=== PATIENT | male | born 1990 | race Caucasian/White ===

== ENCOUNTER 2019-10-29 15:51 | Emergency (ER) | payer SELFPAY ==
[~2019-10-29] VITALS: Ht 167.7 cm; Wt 87.1 kg
[2019-10-29] MEDS ORDERED: LORazepam INJ 2 MG/ML (ATIVAN) VIAL IVP ONE (16:15)
[2019-10-29] MEDS ORDERED: ASPIRIN 81 MG CHEW (CHILDREN'S ASA) PO ONE (16:15)
[2019-10-29] MEDS ORDERED: RT-ALBUTEROL/IPRATROPIUM 3 ML (DUONEB) VIAL INH ONE (16:15)
--- NOTE | 2019-10-29 16:17 | ED General ---
General Stated Complaint: CHEST PAIN History of Present Illness Date Seen by Provider: Oct 29, 2019 Time Seen by Provider: 16:14 Initial Comments Patient presenting to emergency department for evaluation of chest tightness that has been going on for the past 1-2 months but has been more consistent lately and he was quite concerned about an episode that occurred today. He said that it is not associated with activity or exertion or movement he can think of he thinks that food may make it worse. He says that there has been some nausea and shortness of breath when he lays flat but no vomiting or diaphoresis. Patient says that he has had no cough. He denies having any the medical problems but he says his mother told him that he has asthma. He takes no medications and denies any history of diabetes hypertension high cholesterol smoking or family history of heart disease. He is in no obvious distress with normal vital signs. Allergies and Home Medications Allergies Coded Allergies: No Known Drug Allergies (Unverified , 10/29/19) Patient Home Medication List Home Medication List Reviewed: Yes Review of Systems Review of Systems Constitutional: no symptoms reported EENTM: no symptoms reported Respiratory: short of breath Cardiovascular: chest pain Gastrointestinal: nausea Genitourinary: no symptoms reported Musculoskeletal: no symptoms reported Skin: no symptoms reported Psychiatric/Neurological: No Symptoms Reported All Other Systems Reviewed Negative Unless Noted: Yes Past Fgakaxz-Gntpoq-Bpwnin Hx Patient Social History Recent Foreign Travel: No Contact w/Someone Who Travel: No Physical Exam Vital Signs Vital Signs - First Documented 10/29/19 15:55 Temp 37.2 Pulse 95 Resp 19 B/P (MAP) 127/79 (95) Pulse Ox 99 O2 Delivery Room Air Capillary Refill : Height, Weight, BMI Height: '" Weight: lbs. oz. kg; BMI Method: General Appearance: No Apparent Distress, WD/WN HEENT: Pharynx Normal Neck: Supple Respiratory: No Respiratory Distress, Wheezing Cardiovascular: Regular Rate, Rhythm Gastrointestinal: Non Tender, Soft Back: Normal Inspection Extremity: Normal Capillary Refill, No Pedal Edema Neurologic/Psychiatric: Alert, Oriented x3 Skin: Warm/Dry Progress/Results/Core Measures Suspected Sepsis SIRS Temperature: Pulse: Respiratory Rate: Laboratory Tests 10/29/19 16:25: White Blood Count 8.0 Blood Pressure / Mean: Laboratory Tests 10/29/19 16:25: Creatinine 0.85, Platelet Count 150, Total Bilirubin 0.3 Results/Orders Lab Results Laboratory Tests Test 10/29/19 16:25 Range/Units White Blood Count 8.0 4.3-11.0 10^3/uL Red Blood Count 5.05 4.35-5.85 10^6/uL Hemoglobin 15.4 13.3-17.7 G/DL Hematocrit 45 40-54 % Mean Corpuscular Volume 90 80-99 FL Mean Corpuscular Hemoglobin 30 25-34 PG Mean Corpuscular Hemoglobin Concent 34 32-36 G/DL Red Cell Distribution Width 12.6 10.0-14.5 % Platelet Count 150 130-400 10^3/uL Mean Platelet Volume 12.4 H 7.4-10.4 FL Neutrophils (%) (Auto) 50 42-75 % Lymphocytes (%) (Auto) 39 12-44 % Monocytes (%) (Auto) 9 0-12 % Eosinophils (%) (Auto) 2 0-10 % Basophils (%) (Auto) 0 0-10 % Neutrophils # (Auto) 4.0 1.8-7.8 X 10^3 Lymphocytes # (Auto) 3.1 1.0-4.0 X 10^3 Monocytes # (Auto) 0.7 0.0-1.0 X 10^3 Eosinophils # (Auto) 0.1 0.0-0.3 10^3/uL Basophils # (Auto) 0.0 0.0-0.1 10^3/uL D-Dimer 0.33 0.00-0.49 UG/ML Sodium Level 142 135-145 MMOL/L Chloride Level 105 98-107 MMOL/L Carbon Dioxide Level 24 21-32 MMOL/L Anion Gap 13 5-14 MMOL/L Blood Urea Nitrogen 7 7-18 MG/DL Creatinine 0.85 0.60-1.30 MG/DL Estimat Glomerular Filtration Rate > 60 BUN/Creatinine Ratio 8 Calcium Level 9.2 8.5-10.1 MG/DL Corrected Calcium 8.8 8.5-10.1 MG/DL Magnesium Level 2.1 1.6-2.4 MG/DL Total Bilirubin 0.3 0.1-1.0 MG/DL Aspartate Amino Transf (AST/SGOT) 21 5-34 U/L Alanine Aminotransferase (ALT/SGPT) 23 0-55 U/L Alkaline Phosphatase 59 40-136 U/L Troponin I < 0.30 <0.30 NG/ML Pro-B-Type Natriuretic Peptide 30.3 <75.0 PG/ML Total Protein 7.7 6.4-8.2 GM/DL Albumin 4.5 3.2-4.5 GM/DL Lipase 27 8-78 U/L My Orders Orders - BENNY SOTO DO Cbc With Automated Diff (10/29/19 16:08) Comprehensive Metabolic Panel (10/29/19 16:08) Fibrin Degradation Products (10/29/19 16:08) Lipase (10/29/19 16:08) Magnesium (10/29/19 16:08) Probnp Fs (10/29/19 16:08) Troponin I Fs (10/29/19 16:08) Chest 1 View Ap/Pa Only (10/29/19 16:08) Lorazepam Injection (Ativan Injection) (10/29/19 16:15) Aspirin Chewable Tablet (Baby Aspirin Ch (10/29/19 16:15) Albuterol/Ipra Inhalation Soln (Duoneb I (10/29/19 16:15) Svn Small Volume Nebulizer (10/29/19 16:08) Ekg Tracing (10/29/19 16:34) Ed Iv/Invasive Line Start (10/29/19 16:36) Prednisone Tablet (Deltasone Tablet) (10/29/19 17:45) Medications Given in ED Current Medications Medications Dose Ordered Sig/Saritha Route Start Time Stop Time Status Last Admin Dose Admin Albuterol/ Ipratropium 3 ml ONCE ONCE INH 10/29/19 16:15 10/29/19 16:16 DC 10/29/19 16:30 3 ML Aspirin 324 mg ONCE ONCE PO 10/29/19 16:15 10/29/19 16:16 DC 10/29/19 16:30 324 MG Lorazepam 1 mg ONCE ONCE IVP 10/29/19 16:15 10/29/19 16:16 DC 10/29/19 16:30 1 MG Vital Signs/I&O 10/29/19 10/29/19 15:55 15:55 Temp 37.2 Pulse 95 Resp 19 B/P (MAP) 127/79 (95) Pulse Ox 99 O2 Delivery Room Air Room Air Capillary Refill : Progress Note : Progress Note Patient with benign exam and his history is inconsistent with ACS pulmonary embolism or dissection I suspect this is either anxiety costochondritis or bronchospasm. I will check basic labs chest x-ray treat symptoms and reassess. Workup is completely normal and patient said that after getting a breathing treatment this completely resolved the tightness. I suspect this is more of a bronchospasm than anything else I will give him a dose of a steroid prescribe him a steroid and albuterol have him follow with his primary care provider within the next 2-3 days and come back to the ED sooner with worsening pain shortness of breath or other general concerns. Patient aware and agreeable with plan for discharge and verbalized understanding of the above instructions. Departure Impression Primary Impression: Chest pain Qualified Codes: R07.9 - Chest pain, unspecified Additional Impression: Wheezing Disposition: 01 HOME, SELF-CARE Condition: Stable Departure-Patient Inst. Referrals: NO,LOCAL PHYSICIAN (PCP) Primary Care Physician Patient Instructions: Chest Pain (DC), Wheezing Scripts Prednisone (Prednisone) 20 Mg Tab 40 MG PO DAILY for 4 Days, #8 TAB 0 Refills Prov: BENNY SOTO DO 10/29/19 Albuterol Sulfate (PROAIR HFA) 1 Puff Puff 2 PUFF IH Q4H, #1 PUFF 1 PUFF = 90 MCG Prov: BENNY SOTO DO 10/29/19 BENNY SOTO DO Oct 29, 2019 16:17 POS
--- NOTE | 2019-10-29 16:22 | Diagnostic Imaging Report ---
INDICATION: Chest pain. COMPARISON: None available. TECHNIQUE: A single radiograph of the chest is dated 10/29/2019. FINDINGS: The cardiac silhouette and pulmonary vasculature are within normal limits. The lungs are clear. No pleural effusion. No pneumothorax. No acute osseous abnormality. IMPRESSION: No acute cardiopulmonary abnormality. Dictated by: Dictated on workstation # [id number]
[2019-10-29 16:36] LABS: HEMATOCRIT 45 % (40-54); HEMOGLOBIN 15.4 G/DL (13.3-17.7); LYMPHOCYTES % (AUTO) 39 % (12-44); MEAN CORPUSCULAR HEMOGLOBIN 30 PG (25-34); MEAN CORPUSCULAR HGB CONC 34 G/DL (32-36); MEAN CORPUSCULAR VOLUME 90 FL (80-99); MEAN PLATELET VOLUME 12.4 FL (7.4-10.4); NEUTROPHILS % (AUTO) 50 % (42-75); RED CELL DISTRIBUTION WIDTH 12.6 % (10.0-14.5)
[2019-10-29 16:37] LABS: BASOPHILS % (AUTO) 0 % (0-10); EOSINOPHILS # (AUTO) 0.1 10^3/uL (0.0-0.3); EOSINOPHILS % (AUTO) 2 % (0-10); LYMPHOCYTES # (AUTO) 3.1 X 10^3 (1.0-4.0); MONOCYTES # (AUTO) 0.7 X 10^3 (0.0-1.0); MONOCYTES % (AUTO) 9 % (0-12); PLATELET COUNT 150 10^3/uL (130-400)
[2019-10-29 17:21] LABS: ALANINE AMINOTRANSFERASE 23 U/L (0-55); ALBUMIN 4.5 GM/DL (3.2-4.5); ALKALINE PHOSPHATASE 59 U/L (40-136); BILIRUBIN,TOTAL 0.3 MG/DL (0.1-1.0); BUN/CREATININE RATIO 8; CALCIUM 9.2 MG/DL (8.5-10.1); CARBON DIOXIDE 24 MMOL/L (21-32); CHLORIDE 105 MMOL/L (98-107); CREATININE SERUM 0.85 MG/DL (0.60-1.30); GFR ESTIMATED > 60; LIPASE 27 U/L (8-78); MAGNESIUM 2.1 MG/DL (1.6-2.4); SODIUM 142 MMOL/L (135-145); TOTAL PROTEIN 7.7 GM/DL (6.4-8.2)
[2019-10-29] MEDS ORDERED: PRD20T PO (17:36)
[2019-10-29] MEDS ORDERED: RT-ALBUINH IH (17:36)
[2019-10-29 17:37] LABS: GLUCOSE 94 MG/DL (70-105); POTASSIUM 3.9 MMOL/L (3.6-5.0)
[2019-10-29] MEDS ORDERED: predniSONE 20 MG TAB PO ONE (17:45)
[2019-10-29 17:52] VITALS: BP 112/69
== END 2019-10-29 17:54 | disposition home or self-care (01) ==
LOC: ER FS 15:55
DX: R07.89 Other chest pain (principal); R06.2 Wheezing
CPT/HCPCS: 36415; 71045; 80053; 83690; 83735; 83880; 84484; 85025; 85379; 93005; 96374

== ENCOUNTER 2020-06-23 15:36 | Emergency (ER) | payer SELFPAY ==
[~2020-06-23] VITALS: Ht 167.7 cm; Wt 93.0 kg
[~2020-06-23 15:36] MED LIST: PRD20T PO; RT-ALBUINH IH
[2020-06-23 15:41] VITALS: BP 130/84
--- NOTE | 2020-06-23 16:02 | ED Chest Pain ---
General Chief Complaint: Chest Wall Stated Complaint: RIGHT SIDE ABD/RIB PAIN Nursing Triage Note: Patient reports he has had right rib cage/right abdominal for 3 days. States pain is worse when lying on his right side, worse with deep breathing, worse after eating. Nursing Sepsis Screen: No Definite Risk History of Present Illness Date Seen by Provider: Jun 23, 2020 Time Seen by Provider: 15:50 Initial Comments 29-year-old male presents with right-sided anterior chest pain, intermittent over the past 1 week. Pain is worse with certain movements and with coughing or sneezing. Denies any inciting event or trauma or previous occurrence. Denies recent cough, shortness of air, fever or chills or known exposure COVID 19. Allergies and Home Medications Allergies Coded Allergies: No Known Drug Allergies (Unverified , 10/29/19) Home Medications Albuterol Sulfate 1 Puff Puff, 2 PUFF IH Q4H 1 PUFF = 90 MCG Prescribed by: BENNY SOTO on 10/29/191735 Prednisone 20 Mg Tab, 40 MG PO DAILY Prescribed by: BENNY SOTO on 10/29/191735 Patient Home Medication List Home Medication List Reviewed: Yes Review of Systems Review of Systems Constitutional: see HPI; No dizziness, No fever, No malaise, No weakness EENTM: No Symptoms Reported Respiratory: See HPI; Denies Cough, Denies Shortness of Air, Denies Stridor, Denies Wheezing Cardiovascular: Chest Pain (R lower and ant); Denies Edema, Denies Irregular Heart Rate, Denies Lightheadedness, Denies Palpitations, Denies Syncope Gastrointestinal: Denies Abdomen Distended, Denies Abdominal Pain, Denies N ausea, Denies Vomiting Musculoskeletal: No back pain, No joint pain, No muscle pain, No muscle stiffness, No muscle twitching, No neck pain Skin: No change in color, No lesions, No lumps, No rash Past Llntjkl-Ctjtmz-Ogyvwa Hx Past Med/Social Hx: Reviewed Nursing Past Med/Soc Hx Patient Social History Alcohol Use: Denies Use Recreational Drug Use: No Smoking Status: Never a Smoker 2nd Hand Smoke Exposure: No Recent Foreign Travel: No Contact w/Someone Who Travel: No Recent Infectious Disease Expo: No Recent Hopitalizations: No Physical Abuse: No Sexual Abuse: No Mistreated: No Fear: No Seasonal Allergies Seasonal Allergies: No Past Medical History Surgeries: No Respiratory: No Cardiac: No Neurological: No Genitourinary: No Gastrointestinal: No Musculoskeletal: No Endocrine: No HEENT: Yes Glaucoma Cancer: No Psychosocial: No Integumentary: No Physical Exam Vital Signs Vital Signs - First Documented 06/23/20 15:41 Temp 36.8 Pulse 87 Resp 16 B/P (MAP) 130/84 (99) Pulse Ox 95 O2 Delivery Room Air Capillary Refill : Less Than 3 Seconds Height, Weight, BMI Height: '" Weight: lbs. oz. kg; 33.00 BMI Method: General Appearance: No Apparent Distress, WD/WN Neck: Full Range of Motion, Non Tender, Supple Respiratory: Lungs Clear, Normal Breath Sounds, No Accessory Muscle Use, No Respiratory Distress, Other (tenderness right anterior lower rib cage with no specific one area. No pain with lateral compression of the rib cage. No sternal or clavicular pain no posterior chest or rib pain. No CVA tenderness and no vertebral tenderness) Cardiovascular: Regular Rate, Rhythm, No Edema, No Murmur, Normal Peripheral Pulses Gastrointestinal: Non Tender, Soft; No Distended, No Guarding, No Hernia, No Rebound, No Splenomegaly Neurologic/Psychiatric: Alert, Oriented x3, No Motor/Sensory Deficits, Normal Mood/Affect Skin: Normal Color, Warm/Dry Progress/Results/Core Measures Results/Orders My Orders Orders - MARNIE HANKINS DO Chest Pa/Lat (2 View) (06/23/20 15:55) Vital Signs/I&O 06/23/20 15:41 Temp 36.8 Pulse 87 Resp 16 B/P (MAP) 130/84 (99) Pulse Ox 95 O2 Delivery Room Air Blood Pressure Mean: 99 Diagnostic Imaging Diagonstic Imaging: Xray Plain Films/CT/US/NM/MRI: chest Departure Impression Primary Impression: Pleuritic chest pain Disposition: HOME, SELF-CARE Condition: Stable Departure-Patient Inst. Decision time for Depature: 16:05 Referrals: NO,LOCAL PHYSICIAN (PCP) Primary Care Physician Patient Instructions: Pleuritic Chest Pain (DC) Add. Discharge Instructions: See your Primary Care doctor in 1 week for re-evaluation All discharge instructions reviewed with patient and/or family. Voiced under standing. Scripts Ibuprofen (Ibuprofen) 800 Mg Tablet 800 MG PO Q8H PRN for PAIN, #30 TAB 0 Refills Prov: ROVENSTINE,MARNIE L DO 06/23/20 MARNIE HANKINS DO Jun 23, 2020 16:02
[2020-06-23] MEDS ORDERED: IBUP-1780 PO (16:06)
--- NOTE | 2020-06-23 16:18 | Diagnostic Imaging Report ---
INDICATION: Right-sided chest pain. FINDINGS: No focal infiltrate, effusion, or pneumothorax. No free air beneath the diaphragms. IMPRESSION: No acute-appearing abnormality. Dictated by: Dictated on workstation # [id number]
--- OUTSIDE RECORDS SUMMARY | 2020-06-23 18:41 | XMS REPORT | Continuity of Care Document ---
Author Organization Unknown Address Unknown Phone Unavailable Allergies Active Description Code Type Severity Reaction Onset Reported/Identified Relationship to Patient Clinical Status Yes No Known Drug Allergies [id number] Drug Allergy Unknown N/A 10/29/2019 Medications There is no data. Problems Date Dx Coded Attending Type Code Diagnosis Diagnosed By 11/01/2019 BENNY SOTO DO Ot R06 .2 WHEEZING 11/01/2019 BENNY SOTO DO Ot R07.89 OTHER CHEST PAIN 11/01/2019 BENNY SOTO DO Ot R07 .9 CHEST PAIN, UNSPECIFIED Procedures There is no data. Results Test Result Range CRP, CARDIAC - 08/26/19 09:30 HS CRP 2.1 mg/L NRG TSH - 08/26/19 09:30 TSH 2.52 mIU/L 0.40-4.50 Complete blood count (CBC) with automate d white blood cell (WBC) differential - 10/29/19 16:25 Blood leukocytes automated count (number/volume) 8.0 10*3/uL 4.3-11.0 Blood erythrocytes automated count (number/volume) 5.05 10*6/uL 4.35-5.85 Venous blood hemoglobin measurement (mass/volume) 15.4 g/dL 13.3-17.7 Blood hematocrit (volume fraction) 45 % 40-54 Automated erythrocyte mean corpuscular volume 90 [ foz_us] 80-99 Automated erythrocyte mean corpuscular h emoglobin (mass per erythrocyte) 30 pg 25-34 Automated erythrocyte mean corpuscular h emoglobin concentration measurement (mass/volume) 34 g/dL 32-36 Automated erythrocyte distribution width ratio 12. 6 % 10.0- 14.5 Automated blood platelet count (count/volume) 150 10*3/uL 130-400 Automated blood platelet mean volume measurement 12.4 [foz_us] 7.4-10.4 Automated blood neutrophils/100 leukocytes 50 % 42-75 Automated blood lymphocytes/100 leukocytes 39 % 12-44 Blood monocytes/100 leukocytes 9 % 0-12 Automated blood eosinophils/100 leukocytes 2 % 0-10 Automated blood basophils/100 leukocytes 0 % 0-10 Blood neutrophils automated count (number/volume) 4.0 10*3 1.8-7.8 Blood lymphocytes automated count (number/volume) 3.1 10*3 1.0-4.0 Blood monocytes automated count (number/volume) 0. 7 10*3 0.0-1.0 Automated eosinophil count 0.1 10*3/uL 0 .0-0.3 Automated blood basophil count (count/volume) 0.0 10*3/uL 0.0-0.1 Fibrin D-dimer FEU measurement in platel et poor plasma (mass/volume) - 10/29/19 16:25 Fibrin D-dimer FEU measurement in platelet poor plasma (mass/volume) 0.33 ug/mL 0.00-0.49 Comprehensive metabolic panel - 10/29/19 16:25 Serum or plasma sodium measurement (moles/volume) 142 mmol/L 135-145 Serum or plasma potassium measurement (moles/volume) 3.9 mmol/L 3.6-5.0 Serum or plasma chloride measurement (moles/volume) 105 mmol/L 98-107 Carbon dioxide 24 mmol/L 21-32 Serum or plasma anion gap determination (moles/volume) 13 mmol/L 5-14 Serum or plasma urea nitrogen measurement (mass/volume ) 7 mg/dL 7-18 Serum or plasma creatinine measurement (mass/volume) 0.85 mg/dL 0.60-1.30 Serum or plasma urea nitrogen/creatinine mass ratio 8 NRG Serum or plasma creatinine measurement w ith calculation of estimated glomerular filtration rate > NRG Serum or plasma glucose measurement (mass/volume) 94 mg/dL 70-105 Serum or plasma calcium measurement (mass/volume) 9.2 mg/dL 8.5-10.1 Serum or plasma total bilirubin measurement (mass/volu me) 0.3 mg/dL 0.1-1.0 Serum or plasma alkaline phosphatase сергей surement (enzymatic activity/volume) 59 U/L 40-136 Serum or plasma aspartate aminotransfera se measurement (enzymatic activity/volume) 21 U/L 5-34 Serum or plasma alanine aminotransferase measurement (enzymatic activity/volume) 23 U/L 0-55 Serum or plasma protein measurement (mass/volume) 7.7 g/dL 6.4-8.2 Serum or plasma albumin measurement (mass/volume) 4.5 g/dL 3.2-4.5 CALCIUM CORRECTED 8.8 mg/dL 8.5-10.1 Magnesium - 10/29/19 16:25 Magnesium 2.1 mg/dL 1.6-2.4 TROPONIN I FS - 10/29/19 16:25 TROPONIN I FS < 0.30 <0.30 PROBNP FS - 10/29/19 16:25 PROBNP FS 30.3 pg/mL <75.0 Lipase - 10/29/19 16:25 Lipase 27 U/L 8-78 Encounters ACCT No. Visit Date/Time Discharge Status Pt. Type Provider Facility Loc./Unit Complaint [id number] 08/26/2019 09:50:00 08/26/2019 23:59: 59 [facility] Outpatient JOSE VILLALPANDO [facility] [id number] 08/26/2019 09:15:00 Document Registration [id number] 06/23/2020 15:37:00 020 16:24:00 DIS Emergency MARNIE HANKINS DO [facility] ER FS RIGHT SIDE ABD/ RIB PAIN [id number] 10/29/2019 15:55:00 019 17:54:00 DIS Outpatient BENNY SOTO DO [facility] ER FS CHEST PAIN
== END 2020-06-23 16:24 | disposition home or self-care (01) ==
LOC: EDUNIT# 15:36 → ER FS 15:37
DX: R07.81 Pleurodynia (principal); Z79.52 Long term (current) use of systemic steroids
CPT/HCPCS: 71046

== ENCOUNTER 2022-02-18 22:20 | Emergency (ER) | payer SELFPAY ==
[~2022-02-18] VITALS: Ht 167.7 cm; Wt 82.5 kg
[~2022-02-18 22:20] MED LIST changes: +IBUP-1780 PO
[2022-02-18] MEDS ORDERED: TETRACAINE 0.5% OPHTH SOLN 4 ML BTL (SINGLE DOSE ONLY) OU ONE (22:30)
[2022-02-18] MEDS ORDERED: FLUORESCEIN (FLUOR-I-STRIPS) 1 MG STRP OU ONE (22:30)
[2022-02-18] MEDS ORDERED: BSS 15 ML IR ONE (22:30)
--- NOTE | 2022-02-18 23:32 | ED EENT ---
History of Present Illness General Chief Complaint: Eye Problems Stated Complaint: RT EYE IRRITATION Nursing Triage Note: Pt c/o right eye irriation since 2099. Pt stated "I may have metal in it.". Pt denies visual changes. Source: patient History of Present Illness Date Seen by Provider: Feb 18, 2022 Time Seen by Provider: 23:32 Initial Comments 31-year-old male presenting with complaints of irritation to his right eye. He had been using a saw with cutting abdominal earlier in the evening. He was wearing safety glasses. He states after he got home he felt like there was something in his eye and he proceeded to have thick purulent drainage. He has no change in vision but has thick drainage from right eye and irritation to the eye. Timing/Duration: abrupt Severity: moderate Location: eye (R) Prearrival Treatment: no prearrival treatment Associated Symptoms: No change in hearing, No cough, No drooling, No ear drainage, No facial pain/swelling, No fever, No malaise, No nasal congestion/drainage, No poor fluid intake, No poor solids intake, No sinus infection, No sore throat, No tooth pain, No voice change Allergies and Home Medications Allergies Coded Allergies: No Known Drug Allergies (Unverified , 10/29/19) Patient Home Medication List Home Medication List Reviewed: Yes Albuterol Sulfate (Proair Hfa) 1 Puff Puff, 2 PUFF IH Q4H Prescribed by: BENNY SOTO on 10/29/19 173 Ibuprofen (Ibuprofen) 800 Mg Tablet, 800 MG PO Q8H PRN for PAIN Prescribed by: MARNIE HANKISN on 06/23/20 1606 Prednisone (Prednisone) 20 Mg Tab, 40 MG PO DAILY Prescribed by: BENNY SOTO on 10/29/191735 Review of Systems Review of Systems Constitutional: No chills, No fever Eyes: See HPI; Denies Blurred Vision; Drainage (right eye), Photophobia; Denies Vision Changes Ears: No Symptoms Reported Nose: no symptoms reported Mouth: no symptoms reported Throat: no symptoms reported Respiratory: no symptoms reported Cardiovascular: no symptoms reported Gastrointestinal: no symptoms reported Musculoskeletal: no symptoms reported Skin: no symptoms reported Neurological: No Symptoms Reported Past Maznwte-Mwrrya-Idxifk Hx Patient Social History Tobacco Use?: No Substance use?: No Alcohol Use?: Yes Alcohol type: Beer Alcohol Frequency: Several times a month Pt feels they are or have been: No Immunizations Up To Date Influenza Vaccine Up-to-Date: No; Not Current First/Initial COVID19 Vaccinat: denies Seasonal Allergies Seasonal Allergies: No Past Medical History Surgeries: No Respiratory: No Cardiac: No Neurological: No Genitourinary: No Gastrointestinal: No Musculoskeletal: No Endocrine: No HEENT: Yes Glaucoma Cancer: No Psychosocial: No Integumentary: No Physical Exam Vital Signs Vital Signs - First Documented 02/18/22 22:22 Temp 36.8 Pulse 82 Resp 17 B/P (MAP) 141/87 (105) Pulse Ox 98 O2 Delivery Room Air Height, Weight, BMI Height: '" Weight: lbs. oz. kg; 29.00 BMI Method: General Appearance: WD/WN, no apparent distress Eyes: right eye conjunctival inflammation, right eye other (no foreign body seen, no corneal abrasion seen when examined with fluorescein dye and black light); bilateral eye PERRL, bilateral eye EOMI Cardiovascular: normal peripheral pulses Neurologic/Psychiatric: alert, oriented x 3 Skin: normal color, warm/dry Procedures/Interventions Eye : Location: right eye Eye FB Removal: removal w/ cotton swab (purulent drainage along eyelids), other (no foreign body but purulent drainage removed with moistened cotton swab) Anesthesia (gtts): Tetracaine Progress/Results/Core Measures Results/Orders My Orders Orders - KALYN ZAVALA MD Tetracaine 0.5% Ophth Sugar Sdv (Tetracai (02/18/22 22:30) Fluorescein Strips ([id number]) (02/18/22 22:30) Balanced Salt Irrigation Soln (Bss Irrig (02/18/22 22:30) Rx-Poly/Trimeth Ophth (Rx-Polytrim Ophth (02/18/22 23:53) Medications Given in ED Current Medications Medications Dose Ordered Sig/Saritha Route Start Time Stop Time Status Last Admin Dose Admin Balanced Salt Solution 15 ml ONCE ONCE IR 02/18/22 22:30 02/18/22 22:31 DC 02/18/22 22:34 15 ML Fluorescein Sodium 1 mg ONCE ONCE OU 02/18/22 22:30 02/18/22 22:31 DC 02/18/22 22:34 1 MG Tetracaine HCl 4 ml ONCE ONCE OU 02/18/22 22:30 4/1/22 22:31 DC 02/18/22 22:35 4 ML Vital Signs/I&O 02/18/22 02/19/22 22:22 00:05 Temp 36.8 36.8 Pulse 82 82 Resp 17 17 B/P (MAP) 141/87 (105) 141/87 Pulse Ox 98 98 O2 Delivery Room Air Room Air Blood Pressure Mean: 105 Progress Progress Note : Progress Note No corneal abrasion or foreign body seen when examined with fluorescein dye and black light. Flushed with balanced saline solution. will start on Polytrim antibiotic and counseled on follow up and return precautions Departure Impression Primary Impression: Conjunctivitis, atopic, acute Qualified Codes: H10.11 - Acute atopic conjunctivitis, right eye Additional Impression: Corneal irritation of right eye Disposition: HOME, SELF-CARE Condition: Stable Departure-Patient Inst. Decision time for Depature: 23:58 Referrals: JOSE VILLALPANDO MD (PCP/Family) Primary Care Physician Patient Instructions: How to Use Eye Drops and Eye Ointment ED, Conjunctivitis (Noninfectious Pinkeye) (DC) Add. Discharge Instructions: Use 1 drop of the antibiotic eye drop to right eye every 3 hours while awake. Use this for the next 3-5 days to help clear irritation to your eye. If you have worsening symptoms over the weekend you could call Dr. Zambrano and follow up with the eye clinic this weekend. You could try applying an ice pack for 10-15 minutes every 2-3 hours as needed for pain and irritation. Ibuprofen 800 mg every 8 hours as needed for pain All discharge instructions reviewed with patient and/or family. Voiced understanding. KALYN ZAVALA MD Feb 18, 2022 23:32
[2022-02-18] MEDS ORDERED: RX-POLY/TRIMETH (POLYTRIM) OP 10 ML BTL OP STA (23:53)
[2022-02-19 00:05] VITALS: BP 141/87
== END 2022-02-19 00:05 | disposition home or self-care (01) ==
LOC: EDUNIT# 22:20 → ER FS 22:21
DX: H10.11 Acute atopic conjunctivitis, right eye (principal); H57.89 Other specified disorders of eye and adnexa
CPT/HCPCS: 99281

== ENCOUNTER 2022-08-14 11:19 | Emergency (ER) | payer SELFPAY ==
[~2022-08-14] VITALS: Ht 167 cm; Wt 86.0 kg
[2022-08-14 11:29] VITALS: BP 121/89
[2022-08-14] MEDS ORDERED: ORPHENADRINE 60 MG/2 ML (NORFLEX) AMP (ED ONLY) IM STA (11:43)
[2022-08-14] MEDS ORDERED: KETOROLAC 60 MG/2 ML VIAL IM STA (11:43)
--- NOTE | 2022-08-14 11:46 | ED Back Pain ---
General Chief Complaint: Back Problems Stated Complaint: BACK/LEG PAIN Nursing Triage Note: Patient has presented to ER by wheel chair with lower back pain. He reports that he has gone to the races last night and had been sitting on a bench. After sitting on the bench his lower back started hurting. He has continued to have pain all night. He has not taken anything for his pain - he reports that he does not like to take medications. He has presented to ER for evaluation. Source of Information: Patient, Spouse History of Present Illness Date Seen by Provider: Aug 14, 2022 Time Seen by Provider: 11:25 Initial Comments 32-year-old male presenting with complaints of pain to his low back and radiation down his right leg. He had similar symptoms a few months ago after he lifted a 2 pound table and had a pop in his back. At that time the pain had dropped him to his knees in the floor. He had a prolonged time to recover from labs but never went to the clinic or saw any provider about it. This weekend he was at a race and was sitting on a hard bench that had no support for his back. After a couple of hours of doing this he was starting to have severe pain in his back and down the right leg. He has difficulty walking and moving because of the pain. When his symptoms are the same or worse today they finally came to the emergency department to be evaluated. He denies any loss of bowel or bladder control. He has had no direct trauma to his back to contribute to his symptoms. He did used to work for [employer] and was doing heavy lifting as part of his job. Location: Lumbar Spine Timing/Duration: 1 Day Severity: Severe Pain/Injury Location: Back, Lower Extremity (Low back pain and then radiates down the right leg) Method of Injury: Unknown Modifying Factors: Worse With Movement Associated Symptoms: muscle spasms; No fever, No weakness, No numbness in legs/feet, No tingling in legs/feet, No sensory/motor loss; lower back pain; No loss of bladder control, No loss of bowel control Allergies and Home Medications Allergies Coded Allergies: No Known Drug Allergies (Unverified , 10/29/19) Patient Home Medication List Home Medication List Reviewed: Yes Albuterol Sulfate (Proair Hfa) 1 Puff Puff, 2 PUFF IH Q4H Prescribed by: BENNY SOTO on 10/29/19 7041 Ibuprofen (Ibuprofen) 800 Mg Tablet, 800 MG PO Q8H PRN for PAIN Prescribed by: MARNIE HANKINS on 06/23/20 1606 Ibuprofen (Ibuprofen) 800 Mg Tablet, 800 MG PO Q8H PRN for PAIN Prescribed by: KALYN ZAVALA on 08/14/22 1305 Methocarbamol (Methocarbamol) 750 Mg Tablet, 1,500 MG PO Q8H PRN for MUSCLE SPASMS Prescribed by: KALYN ZAVALA on 08/14/22 1305 Oxycodone HCl/Acetaminophen (Oxycodone-Acetaminophen 5-325) 5 Mg-325 Mg Tablet, 1 EACH PO Q4H PRN for PAIN-SEVERE (8-10) Prescribed by: KALYN ZAVALA on 08/14/22 1305 Prednisone (Prednisone) 20 Mg Tab, 40 MG PO DAILY Prescribed by: BENNY SOTO on 10/29/19 173 Review of Systems Constitutional: No chills, No fever EENTM: no symptoms reported Respiratory: no symptoms reported Cardiovascular: no symptoms reported Gastrointestinal: no symptoms reported Genitourinary: no symptoms reported Musculoskeletal: see HPI Skin: No change in color Psychiatric/Neurological: Denies Numbness, Denies Paresthesia Past Mwirvti-Njcdcz-Yxkpny Hx Patient Social History Tobacco Use?: No Use of E-Cig and/or Vaping dev: No Substance use?: No Alcohol Use?: Yes Alcohol Frequency: Once in a while Immunizations Up To Date First/Initial COVID19 Vaccinat: denies Seasonal Allergies Seasonal Allergies: No Past Medical History Surgery/Hospitalization HX: Bulging disc between L4 and L5 Surgeries: No Respiratory: No Cardiac: No Neurological: No Genitourinary: No Gastrointestinal: No Musculoskeletal: No Endocrine: No HEENT: Yes Glaucoma Cancer: No Psychosocial: No Integumentary: No Physical Exam Vital Signs Vital Signs - First Documented 08/14/22 11:29 Temp 36.3 Pulse 106 Resp 18 B/P (MAP) 121/89 (100) Pulse Ox 98 Capillary Refill : Height, Weight, BMI Height: '" Weight: lbs. oz. kg; 30.00 BMI Method: General Appearance: WD/WN, Anxious, Moderate Distress HEENT: PERRL/EOMI Neck: Full Range of Motion, Normal Inspection, Non Tender, Supple Cardiovascular: Regular Rate, Rhythm, Normal Peripheral Pulses Respiratory: Chest Non Tender, Lungs Clear, Normal Breath Sounds Back: No Vertebral Tenderness, Muscle Spasm Extremity: Normal Capillary Refill, Normal Inspection, No Pedal Edema Neurologic/Psychiatric: Alert, Oriented x3, lime burner II-XII Norm as Tested, Other (Patellar reflexes 2/4 bilaterally.) Skin: Normal Color, Warm/Dry Progress/Results/Core Measures Results/Orders My Orders Orders - KALYN ZAVALA MD Ketorolac Injection (Toradol Injection) (08/14/22 11:43) Orphenadrine Inj (Ed Only) (Norflex Inje (08/14/22 11:43) Ct Lumbar Spine Wo (08/14/22 12:09) Ct Pelvis Wo (08/14/22 12:09) Vital Signs/I&O 08/14/22 11:29 Temp 36.3 Pulse 106 Resp 18 B/P (MAP) 121/89 (100) Pulse Ox 98 Blood Pressure Mean: 100 Progress Progress Note #1: Progress Note As he has not had any imaging from his previous injury will obtain a CT scan and of his lumbar spine and pelvis to look for signs of sciatica her bulging disc or compression fracture. From a pain standpoint we will give Norflex 60 mg IM for muscle spasms and 60 mg of Toradol IM for general pain and inflammation. Progress Note #2: Progress Note CT shows bulging disc in the lumbar spine worse on the right side. Patient does report that his symptoms were doing a little better after the shots and medication here in the ED. We will continue with anti-inflammatories as well as muscle relaxers and prescribe a few pain pills so he has a narcotic to help with severe pain. Diagnostic Imaging Diagonstic Imaging: CT Plain Films/CT/US/NM/MRI: pelvis Comments NAME: MIKAYLA MESSINA HYGIEIA REC#: [id number] PT STATUS: REG ER : 1990 PHYSICIAN: KALYN ZAVALA MD ADMIT DATE: 08/14/22/ER FS Draft Date of Exam:08/14/22 CT PELVIS WO PROCEDURE: CT pelvis without contrast. TECHNIQUE: Multiple contiguous axial images were obtained through the pelvis without the use of intravenous contrast. Sagittal and coronal reformations were performed. Auto Exposure Controls were utilized during the CT exam to meet ALARA standards for radiation dose reduction. INDICATION: Pain. COMPARISON: Imaging from the same date. FINDINGS: The minimally visualized appendix is grossly unremarkable. The urinary bladder is unremarkable. Moderate amount of stool within the visualized colon. No evidence of bowel obstruction. No significant adenopathy, free air, or free fluid within the abdomen. Soft tissue gas with associated mild inflammatory stranding is noted within the left gluteal subcutaneous tissues. No acute fracture or dislocation. No destructive osseous process. Small sclerotic foci are identified within the proximal bilateral femora. No large-volume hip joint effusion. IMPRESSION: Small amount of subcutaneous gas and inflammatory stranding within the left gluteal region. This could relate to recent injection site versus puncture wound. Recommend clinical correlation and direct visualization. No acute osseous abnormality. Scattered small sclerotic lesions within the bilateral femora, favored to relate to bone islands. Moderate amount of stool within the visualized colon. Dictated on workstation # [id number] Dict: 08/14/22 1230 Trans: 08/14/22 1240 [id number] Interpreted by: QUENTIN WALDRON MD Electronically signed by: Diagonstic Imaging: CT Plain Films/CT/US/NM/MRI: other (lumbar spine) Comments NAME: MIKAYLA MESSINA Miriam MED REC#: [id number] PT STATUS: REG ER : 1990 PHYSICIAN: KALYN ZAVALA MD ADMIT DATE: 08/14/22/ER FS Draft Date of Exam:08/14/22 CT LUMBAR SPINE WO Procedure: CT lumbar spine without contrast. Technique: Multiple contiguous axial images were obtained through the lumbar spine without the use of intravenous contrast. Sagittal and coronal reformations were then performed. Auto Exposure Controls were utilized during the CT exam to meet ALARA standards for radiation dose reduction. Date: August 14, 2022. Indication: 32-year-old male, back pain. Comparison: None. Findings: The alignment of the lumbar spine is unremarkable. There is mild disc height loss at L5-S1. There is no identified compression deformity or fracture of the lumbar spine. CT is limited for assessment of disc pathology as well as additional nonbony causes of pathology in the spinal canal. The sacroiliac joints are unremarkable in appearance. There does appear to be mild diffuse disc bulge at L4-L5. There is suspected mild bilateral lateral recess narrowing without high-grade foraminal or spinal stenosis. There is a right paracentral disc extrusion at L5-S1 with suspected severe narrowing of the right lateral recess and likely at least mild to moderate spinal stenosis. Impression: 1. Right paracentral disc extrusion at L5-S1 with suspected severe narrowing of the right lateral recess and likely at least mild to moderate spinal stenosis. 2. Diffuse disc bulge at L4-L5 with suspected mild bilateral lateral recess narrowing at this level. 3. No acute osseous abnormality of the lumbar spine. Dictated on workstation # [id number] Dict: 08/14/22 1228 Trans: 08/14/22 1239 [id number] [id number] Interpreted by: BRETT STEPHENS MD Electronically signed by: Reviewed: Reviewed by Me Departure Impression Primary Impression: Bulging of intervertebral disc between L4 and L5 Additional Impression: Lumbar back pain with radiculopathy affecting right lower extremity Disposition: 01 HOME, SELF-CARE Condition: Stable Departure-Patient Inst. Decision time for Depature: 13:00 Referrals: JOSE VILLALPANDO MD (PCP) Primary Care Physician Patient Instructions: Herniated Disc (DC), Low Back Pain ED, Radiculopathy Add. Discharge Instructions: Try alternating ice and heat to your back to help with pain and inflammation. Take the muscle relaxer with anti-inflammatories to help with back pain and spasms. For severe pain take the hydrocodone with acetaminophen. If you are having to take the narcotic pain pill consider taking MiraLAX or a laxative to help keep your stools soft and regular as the narcotics can cause constipation. Straining with constipation will inflame your back more and contribute to more pain for you. Call clinic in am to see about setting up appointment within the next 1-2 weeks to be seen about your back. They may need to refer you for physical therapy and/or pain management. If not improving or having worsening symptoms you may need to see Orthopedics or a technical maintenance specialist as well. All discharge instructions reviewed with patient and/or family. Voiced understanding. Scripts Methocarbamol (Methocarbamol) 750 Mg Tablet 1500 MG PO Q8H PRN for MUSCLE SPASMS for 10 Days, #60 TAB 0 Refills Prov: KALYN ZAVALA MD 08/14/22 Oxycodone HCl/Acetaminophen (Oxycodone-Acetaminophen 5-325) 5 Mg-325 Mg Tablet 1 EACH PO Q4H PRN for PAIN-SEVERE (8-10) MDD 6 for 5 Days, #30 TAB 0 Refills Prov: KALYN ZAVALA MD 08/14/22 Ibuprofen (Ibuprofen) 800 Mg Tablet 800 MG PO Q8H PRN for PAIN for 10 Days, #30 TAB 0 Refills Prov: KALYN ZAVALA MD 08/14/22 KALYN ZAVALA MD Aug 14, 2022 11:46
--- NOTE | 2022-08-14 12:40 | Diagnostic Imaging Report ---
Procedure: CT lumbar spine without contrast. Technique: Multiple contiguous axial images were obtained through the lumbar spine without the use of intravenous contrast. Sagittal and coronal reformations were then performed. Auto Exposure Controls were utilized during the CT exam to meet ALARA standards for radiation dose reduction. Date: August 14, 2022. Indication: 32-year-old male, back pain. Comparison: None. Findings: The alignment of the lumbar spine is unremarkable. There is mild disc height loss at L5-S1. There is no identified compression deformity or fracture of the lumbar spine. CT is limited for assessment of disc pathology as well as additional nonbony causes of pathology in the spinal canal. The sacroiliac joints are unremarkable in appearance. There does appear to be mild diffuse disc bulge at L4-L5. There is suspected mild bilateral lateral recess narrowing without high-grade foraminal or spinal stenosis. There is a right paracentral disc extrusion at L5-S1 with suspected severe narrowing of the right lateral recess and likely at least mild to moderate spinal stenosis. Impression: 1. Right paracentral disc extrusion at L5-S1 with suspected severe narrowing of the right lateral recess and likely at least mild to moderate spinal stenosis. 2. Diffuse disc bulge at L4-L5 with suspected mild bilateral lateral recess narrowing at this level. 3. No acute osseous abnormality of the lumbar spine. Dictated by: Dictated on workstation # [id number]
--- NOTE | 2022-08-14 12:41 | Diagnostic Imaging Report ---
PROCEDURE: CT pelvis without contrast. TECHNIQUE: Multiple contiguous axial images were obtained through the pelvis without the use of intravenous contrast. Sagittal and coronal reformations were performed. Auto Exposure Controls were utilized during the CT exam to meet ALARA standards for radiation dose reduction. INDICATION: Pain. COMPARISON: Imaging from the same date. FINDINGS: The minimally visualized appendix is grossly unremarkable. The urinary bladder is unremarkable. Moderate amount of stool within the visualized colon. No evidence of bowel obstruction. No significant adenopathy, free air, or free fluid within the abdomen. Soft tissue gas with associated mild inflammatory stranding is noted within the left gluteal subcutaneous tissues. No acute fracture or dislocation. No destructive osseous process. Small sclerotic foci are identified within the proximal bilateral femora. No large-volume hip joint effusion. IMPRESSION: Small amount of subcutaneous gas and inflammatory stranding within the left gluteal region. This could relate to recent injection site versus puncture wound. Recommend clinical correlation and direct visualization. No acute osseous abnormality. Scattered small sclerotic lesions within the bilateral femora, favored to relate to bone islands. Moderate amount of stool within the visualized colon. Dictated by: Dictated on workstation # [id number]
[2022-08-14] MEDS ORDERED: METH-732 PO (13:05)
[2022-08-14] MEDS ORDERED: IBUP-1780 PO (13:05)
[2022-08-14] MEDS ORDERED: OXYC1TAB11 PO (13:05)
== END 2022-08-14 13:10 | disposition home or self-care (01) ==
LOC: EDUNIT# 11:19 → ER FS 11:21
DX: M51.36 Other intervertebral disc degeneration, lumbar region (principal); M54.16 Radiculopathy, lumbar region; Z28.310 Unvaccinated for COVID-19
CPT/HCPCS: 72131; 72192